=== PATIENT | male | born 1980 | race Caucasian/White ===

== ENCOUNTER 2017-09-03 16:36 | Emergency (ER) | payer OTHER ==
[~2017-09-03] VITALS: Ht 177.8 cm; Wt 68.0 kg
[2017-09-03] MEDS ORDERED: BACTRIM DS TAB1 EACH PO (17:29)
[2017-09-03] MEDS ORDERED: NYSTATIN15 G3 TOP (17:29)
[2017-09-03 17:37] VITALS: BP 130/70
== END 2017-09-03 17:39 | disposition home or self-care (01) ==
LOC: M.ERS 16:36
DX: B37.2 Candidiasis of skin and nail (principal); R23.8 Other skin changes; F17.200 Nicotine dependence, unspecified, uncomplicated; Z59.0 Homelessness